=== PATIENT | male | born 1985 | race Caucasian/White ===

== ENCOUNTER 2019-07-09 13:12 | Emergency (ER) | payer OTHER, SELFPAY ==
--- NOTE | ~2019-07-09 | CT_ITS ---
EXAMINATION: CT brain wo con EXAM DATE: 07/09/2019 13:38 INDICATION: Altered level of consciousness. TECHNIQUE: Spiral CT of the head was performed without contrast. Axial, coronal and sagittal images were reviewed. The dose-length product (DLP) for this examination was 529.67 mGy-cm. The exposure w as tailored according to patient size, and iterative reconstruction (ASIR) was used as additional dos e reduction technique. Comparison is made to prior examination from 04/03/2014. FINDINGS: There is no acute intraparenchymal hemorrhage. No evidence of intraparenchymal brain mass lesion. No evidence of acute infarction. There is no mass effect or midline shift. The ventricles are normal in size. There are no extra-axial collections. There are no acute calvarial fractures. T he orbits are unremarkable. Soft tissue is unremarkable. The visualized sinuses and mastoid air [place] ls are well aerated. IMPRESSION: 1. Unremarkable head CT examination. Reviewed, dictated and finalized at location A. R [employer]OR
--- NOTE | 2019-07-09 13:19 | ECG_ITS ---
Measurements Intervals [place] Rate: 88 P: 54 [place]: 137 QRS: 81 QRSD: 90 T: 37 QT: 349 QTc: 422 Interpretive Statements SINUS RHYTHM BASELINE ARTIFACT- I, III, AVR, AVL BORDERLINE ECG Electronically Signed On 07-09-2019 13:46:23 [employer] by Betito Zheng D.O.
[2019-07-09 13:20] VITALS: BP 125/90; PULSE 87; RESP 12; TEMP 36.3; O2SAT 98
--- NOTE | 2019-07-09 13:27 | ED.AMS ---
HPI - Altered Mental Status General Chief Complaint: Altered Mental Status Stated Complaint: alt loc Time Seen by Provider: 07/09/19 13:16 Source: patient and EMS Mode of arrival: EMS Limitations: other (Pt being uncooperative) History of Present Illness HPI narrative: The pt is a 33 y/o male who presents to the ED, via EMS, c/o AMS onset today. EMS states that the pt was at work when he started to lean over and become altered. Pt notes that he drank 2 pints of vodka and rum today. HPI is limited due to the pt being uncooperative. MD complaint: altered mental status Consistency of symptoms: unknown Context: other (Use of alcohol today) Associated symptoms: other (Unobtainable) Related Data Home Medications Medication Instructions Recorded Confirmed No Home Medications 07/09/19 07/09/19 Allergies Allergy/AdvReac Type Severity Reaction Status Date / Time No Known Allergies Allergy Verified 07/09/19 13:25 Review of Systems Review of Systems: ROS unobtainable: other (Unobtainable due to pt being uncooperative.) [facility] Past Medical History Medical History (Updated 07/09/19 @ 19:37 by Jamal Blanco MD) Inguinal hernia Surgical History Surgical History (Updated 07/09/19 @ 13:47 by Sharath Johnston) H/O inguinal hernia repair Social History Social History (Updated 07/09/19 @ 13:47 by Sharath Johnston) Smoking status: Former smoker Smoking end date: 09/16/13 Gender identity (if verbalized by the patient): Male Comments PMHx is limited due to the pt being uncooperative. PMHx was acquired via old records. Exam Narrative: Exam Narrative: Neuro: Unable to assess due to patient being uncooperative. Const: General: healthy appearing, no acute distress, well developed, alert and awake Limitations: behavioral limitations (Being uncooperative) HENMT: Head: normocephalic and atraumatic Neck: Neck: full ROM Resp: Effort & Inspection: normal respiratory effort, able to speak in complete sentences, no respiratory distress and not tachypneic Auscultation: clear to auscultation bilaterally, no crackles, no rales, no rhonchi and no wheezes Cardio: Rate: regular rate Rhythm: regular rhythm Skin: General skin exam: normal color, no rashes or lesions noted, elasticity normal and turgor normal Extrem: General: normal to inspection, full ROM and capillary refill normal Psych: Appearance: grossly normal and well kempt Mental Status: mental status grossly normal Speech and movement: Normal speech and movement present Judgement: Good judgement present (Psych) Course Course Emergency Course: PT RE EXAMINED @ 1936, PT NOW ALERT AWAKE AND ORIENTED X 3. PT HAS NO COMPLAINTS. WALKED TO THE BATHROOM WITH A STEADY GAIT. Vital Signs Vital signs: Vital Signs Temperature 36.3 C L 07/09/19 13:20 Pulse Rate 87 07/09/19 13:20 Respiratory Rate 12 07/09/19 13:20 Blood Pressure 125/90 07/09/19 13:20 Pulse Oximetry 98 07/09/19 13:20 Temperature 36.3 C L 07/09/19 13:20 Pulse Rate 65 07/09/19 19:07 Respiratory Rate 19 07/09/19 19:07 Blood Pressure 95/65 L 07/09/19 19:07 Pulse Oximetry 99 07/09/19 19:07 MDM - Altered Mental Status Lab Data Result diagrams: 07/09/19 13:46 07/09/19 13:46 Labs: Lab Results 07/09/19 07/09/19 07/09/19 Range/Units 13:46 13:46 13:46 WBC 4.1 L (4.5-10.0) K/mm3 RBC 5.04 (4.6-6.20) M/mm3 Hgb 15.8 (14.0-18.0) g/dL Hct 48.0 (42.0-52.0) % MCV 95.2 (80-100) fl MCH 31.3 (26-34) pg MCHC 32.9 (32-36) g/dl RDW 12.8 (11.5-14.5) % Plt Count 250 (150-375) k/mm3 MPV 9.0 (7.4-10.4) fl Immature Gran % (Auto) 0.2 (0-0.5) % Neut % (Auto) 61.4 (45.5-73.1) % Lymph % (Auto) 28.1 (18.3-44.2) % Ness % (Auto) 7.4 (2.6-8.5) % Eos % (Auto) 0.7 (0-4.4) % Baso % (Auto) 2.2 H (0.2-1.2) % Lymph # (Auto) 1.14 (0.9-3.2) K/mm3 Ness # (Auto) 0.3 (0.1-0
[2019-07-09 13:54] LABS: Basophils Absolute Auto 0.1 K/mm3 (0.0-0.1); Basophils Percent Auto 2.2 % (0.2-1.2); Eosinophils Percent Auto 0.7 % (0-4.4); Hemoglobin 15.8 g/dL (14.0-18.0); Immature Granulocyte Absolute 0.01 K/mm3 (0.00-0.031); Immature Granulocyte Percent A 0.2 % (0-0.5); Lymphocytes Absolute Auto 1.14 K/mm3 (0.9-3.2); Lymphocytes Percent Auto 28.1 % (18.3-44.2); Mean Corpuscular HGB Conc 32.9 g/dl (32-36); Mean Corpuscular Hemoglobin 31.3 pg (26-34); Mean Corpuscular Volume 95.2 fl (80-100); Monocytes Absolute Auto 0.3 K/mm3 (0.1-0.6); Monocytes Percent Auto 7.4 % (2.6-8.5); Neutrophils Absolute Auto 2.5 K/mm3 (1.3-6.7); Neutrophils Percent Auto 61.4 % (45.5-73.1); Platelet Count Result 250 k/mm3 (150-375); Red Blood Count 5.04 M/mm3 (4.6-6.20); Red Cell Distribution Width 12.8 % (11.5-14.5); White Blood Count 4.1 K/mm3 (4.5-10.0)
[2019-07-09 14:06] LABS: Alanine Aminotransferase 42 U/L (4-50); Alkaline Phosphatase 66 U/L (38-126); Aspartate Amino Transferase 84 U/L (17-59); Bilirubin,Total 0.4 mg/dL (0.2-1.3); Blood Urea Nitrogen 6 mg/dL (9-20); Carbon Dioxide 27 mmol/L (22-30); Chloride 101 mmol/L (98-107); Estimated Glomerular Filt Rate > 60; Glucose 82 mg/dL (75-110); Potassium 4.3 mmol/L (3.4-5.0); Sodium 145 mmol/L (137-145)
[2019-07-09 14:16] LABS: Ethanol 468 mg/dL (<10)
[2019-07-09 14:22] LABS: Add Urine Microscopic? NO; Appearance Urine Clear (Clear); Bilirubin Urine Negative (Negative); Blood Urine Negative (Negative); Color Urine Colorless (Yellow); Glucose Urine UA Negative (Negative); Ketones Urine Negative (Negative); Leukocyte Esterase Ur Negative LEU/UL (Negative); Nitrate Urine Negative (Negative); Protein Urine Negative (Negative); RBC Urine 0-2 /hpf (0-2); Specific Grav Ur 1.004 (1.001-1.035); Urobilinogen Urine Negative mg/dL (<2.0); WBC Urine 0-3 /hpf
[2019-07-09] MEDS: SODIUM CHLORIDE 0.9% IV 1,000 ML 999 ML IV CONT (14:30)
[2019-07-09 14:33] LABS: Amphetamine Screen Urine Negative (Negative); Barbiturate Screen Urine Negative (Negative); Benzodiazepines Screen Urine Negative (Negative); Cannabinoid Screen Urine Negative (Negative); Cocaine Screen Urine Negative (Negative); Methadone Screen Urine Negative (Negative); Opiate Screen Urine Negative (Negative); Phencyclidine Screen Urine Negative (Negative)
[2019-07-09 15:30] VITALS: BP 93/68; PULSE 83; RESP 19; O2SAT 98
[2019-07-09 16:55] VITALS: BP 93/56; PULSE 84; RESP 15; O2SAT 100
[2019-07-09 17:58] VITALS: BP 96/65; PULSE 75; RESP 15; O2SAT 100
[2019-07-09 19:07] VITALS: BP 95/65; PULSE 65; RESP 19; O2SAT 99
[2019-07-09 19:55] VITALS: BP 120/94; PULSE 97; RESP 18; O2SAT 100
--- NOTE | 2019-07-09 20:00 | PC.NURSE ---
Patient up for D/C. Asked patient if he has a safe way to get home. Reports he does not have the numbers of anyone. Gave number for boss at [employer], Hany stated he would go back in about an hour and a half to get contact info for me. Patient resting on stretcher, aox3, eating meal. 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
--- NOTE | 2019-07-09 20:45 | PC.NURSE ---
Patient resting on stretcher, waiting for ride.
--- NOTE | 2019-07-09 21:11 | PC.NURSE ---
Patient noted to not be in room, triage nurse confirmed patient ambulated out of ED at approx 2100. Triage nurse aware.
--- NOTE | 2019-07-15 07:14 | PC.NURSE ---
LATE ENTRY This note is being entered to document information to the patient's record. The following information was omitted on 07/09/2019, by Sary Johns. Normal saline stopped at 1423 by this RN.
== END 2019-07-09 21:13 | disposition home or self-care (01) ==
PROVIDERS: Emergency Provider Emergency Medicine
DX: F10.920 Alcohol use, unspecified with intoxication, uncomplicated (principal); Z87.891 Personal history of nicotine dependence; Y90.8 Blood alcohol level of 240 mg/100 ml or more
CPT/HCPCS: 36415; 51701; 70450; 80053; 80307; 81003; 85025; 93005; 99284; J7030